=== PATIENT | female | born 1995 | race Caucasian/White ===

== ENCOUNTER 2016-07-28 08:01 | Emergency (ER) | payer OTHER ==
[2016-07-28] MEDS ORDERED: Ibuprofen 400 MG TAB ONE (09:03)
== END 2016-07-28 09:19 | disposition home or self-care (01) ==
LOC: ER 08:01
CPT/HCPCS: 71020

== ENCOUNTER 2016-07-29 22:03 | Emergency (ER) | payer OTHER ==
[2016-07-30] MEDS ORDERED: SODIUM CHLORIDE 0.9% 100 ML IV ONE (00:16)
[2016-07-30] MEDS ORDERED: CEFTRIAXONE 1 GM VIAL ONE (00:16)
[2016-07-30] MEDS ORDERED: SODIUM CHLORIDE 0.9% 1,000 ML ONE (00:16)
== END 2016-07-30 01:39 | disposition home or self-care (01) ==
LOC: ER 22:03
DX: N30.00 Acute cystitis without hematuria (principal); E86.0 Dehydration
CPT/HCPCS: 36415; 80053; 81001; 83690; 84703; 85025; 87088; 96361; 96365